=== PATIENT | female | born 1985 | race African-American/Black ===

== ENCOUNTER 2019-03-24 18:39 | Inpatient (IN) | payer MEDICAID ==
[~2019-03-24] VITALS: Ht 167.6 cm; Wt 90.7 kg
[2019-03-24] MEDS ORDERED: DEXT 5%/LACTATED RINGERS 1,000 ML IV SCH (18:58)
[2019-03-24] MEDS ORDERED: LACTATED RINGERS 1,000 ML IV SCH (18:58)
[2019-03-24] MEDS ORDERED: PENICILLIN G POTASSIUM 5 MMU in DEXT 5% WATER 100 ML IV SCH (19:00)
[2019-03-24] MEDS ORDERED: RHO(D) IMMUNE GLOBULIN 300 MCG/SYR IM NR (19:00)
[2019-03-24] MEDS ORDERED: CARBOPROST TROMETHAMINE 250 MCG/ML AMPUL IM PRN (19:00)
[2019-03-24] MEDS ORDERED: METHYLERGONOVINE MALEATE 0.2 MG/ML IM PRN (19:00)
[2019-03-24] MEDS ORDERED: NALOXONE HCL 0.4 MG/ML 1ML VIAL IM PRN (19:00)
[2019-03-24] MEDS ORDERED: PENICILLIN G POTASSIUM 2.5 MMU in DEXTROSE 5% WATER 50 ML IV SCH (19:15)
[2019-03-24] MEDS: BUTORPHANOL TARTRATE 2 MG/ML VIAL IV PRN ×3 (19:25→23:53)
[2019-03-24 19:47] LABS: BASOPHILS % 0.6 % (0.0-2.0); EOSINOPHILS % 0.5 % (0.0-5.0); HEMATOCRIT. 24.7 % (36.0-48.0); HEMOGLOBIN. 7.1 g/dL (12.0-16.0); MEAN CORPUSCULAR HEMOGLOBIN 15.1 pg (28.0-32.0); MEAN CORPUSCULAR VOLUME 52.4 fL (81.0-99.0); MEAN PLATELET VOLUME 8.7 fl (7.4-10.4); MONOCYTES % 4.5 % (2.0-8.0); NEUTROPHILS % 76.4 % (40.0-76.0); PLATELET 184 x1000/uL (130-400); RED CELL DISTRIBUTION WIDTH 23.2 % (11.6-14.6)
[2019-03-24 19:52] LABS: CHLORIDE 109 mEq/L (98-107)
[2019-03-24 19:57] LABS: CLARITY URINE CLOUDY (CLEAR); COLOR URINE ORANGE (YELLOW); KETONES URINE TRACE (NEGATIVE); LEUKOCYTE ESTERASE URINE 1+ (NEGATIVE); NITRITE URINE POSITIVE (NEGATIVE); OCCULT BLOOD URINE 3+ (NEGATIVE); PROTEIN URINE 4+ (NEGATIVE); SPECIFIC GRAVITY URINE 1.037 (1.005-1.030)
[2019-03-24 20:04] LABS: D-DIMER 16.17 mg/L FEU (<0.50); PROTHROMBIN TIME 10.3 sec (9.6-11.0)
[2019-03-24 20:10] LABS: *BARBITURATES SCREEN URINE NEGATIVE (NEGATIVE)
[2019-03-24 20:11] LABS: *BENZODIAZEPINES SCREEN URINE NEGATIVE (NEGATIVE); *COCAINE SCREEN URINE NEGATIVE (NEGATIVE); METHADONE URINE SCREEN NEGATIVE (NEGATIVE); OPIATES URINE SCREEN NEGATIVE (NEGATIVE); PHENCYCLIDINE URINE SCREEN NEGATIVE (NEGATIVE)
[2019-03-24 20:16] LABS: CANNABINOID URINE SCREEN PRESUMTIVE POSITIVE (NEGATIVE)
[2019-03-24 20:17] LABS: *AMPHETAMINES SCREEN URINE PRESUMTIVE POSITIVE (NEGATIVE)
[2019-03-24] MEDS: DEXT 5%/LR + PITOCIN 20UNITS/L 1,000 ML IV SCH ×2 (20:23→22:24)
[2019-03-24] MEDS: CLINDAMYCIN 900 MG in DEXTROSE 5% WATER 50 ML IV SCH (20:38)
[2019-03-24] MEDS: MAGNESIUM 20 G PREMIX (L & D) 500 ML IV SCH (20:42)
[2019-03-24] MEDS ORDERED: DEXT 5%/LR + PITOCIN 20UNITS/L 1,000 ML IV SCH (21:11)
[2019-03-24] MEDS ORDERED: DIPHENHYDRAMINE 25MG CAPSULE PO PRN (21:15)
[2019-03-24] MEDS ORDERED: IBUPROFEN 400MG TABLET PO PRN (21:15)
[2019-03-24] MEDS ORDERED: MAGNESIUM 4 G PREMIX 100 ML IV ONE (21:15)
[2019-03-24] MEDS ORDERED: INFLUENZA VIRUS VACCINE(AFLURIA) 0.5ML SYR IM ONE (21:15)
[2019-03-24] MEDS ORDERED: TETANUS, DIPHTHERIA, PERTUSSIS VAC/PF 0.5ML (>7YR OLD) IM ONE (21:15)
[2019-03-24] MEDS ORDERED: LANOLIN OINT 0.25 GM TUBE TOP PRN (21:15)
[2019-03-24] MEDS ORDERED: MAGNESIUM 2 G PREMIX 50 ML IV NR (21:33)
[2019-03-24] MEDS ORDERED: HEMORRHOIDAL SUPP PR PRN (21:33)
[2019-03-24] MEDS ORDERED: GLYCERIN/WITCH HAZEL LEAF MEDICATED PAD TOP PRN (21:33)
[2019-03-24 22:04] LABS: PLATELET ESTIMATE NORMAL
[2019-03-24] MEDS: GENTAMICIN 100MG PREMIX 50 ML IV SCH (22:25)
[2019-03-24] MEDS: HYDRALAZINE 20MG/ML VIAL IV NR ×2 (23:16→23:55)
[2019-03-25] VITALS (9 sets, daily range): BP systolic 115–174; BP diastolic 76–119
[2019-03-25 03:37] LABS: BASOPHILS % 0.8 % (0.0-2.0); EOSINOPHILS % 0.2 % (0.0-5.0); HEMATOCRIT. 21.7 % (36.0-48.0); LYMPHOCYTES % 15.7 % (20.0-50.0); MEAN CORPUSCULAR HEMOGLOBIN 15.1 pg (28.0-32.0); MEAN CORPUSCULAR VOLUME 52.3 fL (81.0-99.0); MEAN PLATELET VOLUME 9.3 fl (7.4-10.4); MONOCYTES % 2.8 % (2.0-8.0); NEUTROPHILS % 80.5 % (40.0-76.0); PLATELET 153 x1000/uL (130-400); RED BLOOD CELL COUNT 4.16 mill/uL (4.2-5.4); RED CELL DISTRIBUTION WIDTH 22.7 % (11.6-14.6)
[2019-03-25 03:47] LABS: HEMOGLOBIN. 6.3 g/dL (12.0-16.0)
[2019-03-25] MEDS: CLINDAMYCIN 900 MG in DEXTROSE 5% WATER 50 ML IV SCH ×3 (04:39→22:16)
[2019-03-25 04:44] LABS: HEPATITIS B SURFACE ANTIGEN NEGATIVE
[2019-03-25] MEDS: BUTORPHANOL TARTRATE 2 MG/ML VIAL IV PRN (05:08)
[2019-03-25] MEDS: GENTAMICIN 100MG PREMIX 50 ML IV SCH ×3 (06:35→22:16)
[2019-03-25] MEDS: LABETALOL HCL 100MG TABLET PO SCH ×3 (06:40→22:19)
[2019-03-25] MEDS: MAGNESIUM 20 G PREMIX (L & D) 500 ML IV SCH (06:53)
[2019-03-25] MEDS ORDERED: LIDOCAINE HCL/PF 1% 10 MG/ML 5ML VIAL ONE (07:01)
[2019-03-25] MEDS: ACETAMINOPHEN WITH CODEINE 300/30MG TABLET PO PRN ×4 (08:45→22:33)
[2019-03-25] MEDS: PRENATAL VIT/FE FUMARATE/FA TABLET PO SCH (13:44)
[2019-03-25] MEDS: FERROUS SULFATE 325MG TABLET PO SCH ×2 (13:44→18:31)
[2019-03-25] MEDS: DOCUSATE SODIUM 100MG CAPSULE PO SCH (22:16)
[2019-03-26] VITALS (11 sets, daily range): BP systolic 109–140; BP diastolic 69–95
[2019-03-26 05:50] LABS: BASOPHILS % 0.7 % (0.0-2.0); EOSINOPHILS % 1.9 % (0.0-5.0); LYMPHOCYTES % 24.4 % (20.0-50.0); MEAN CORPUSCULAR HEMOGLOBIN 16.4 pg (28.0-32.0); MEAN CORPUSCULAR VOLUME 54.7 fL (81.0-99.0); MONOCYTES % 3.5 % (2.0-8.0); NEUTROPHILS % 69.5 % (40.0-76.0); RED BLOOD CELL COUNT 3.82 mill/uL (4.2-5.4); RED CELL DISTRIBUTION WIDTH 25.9 % (11.6-14.6)
[2019-03-26] MEDS: GENTAMICIN 100MG PREMIX 50 ML IV SCH (06:35)
[2019-03-26] MEDS: LABETALOL HCL 100MG TABLET PO SCH ×2 (06:36→21:58)
[2019-03-26] MEDS: FERROUS SULFATE 325MG TABLET PO SCH ×2 (06:36→16:12)
[2019-03-26] MEDS: ACETAMINOPHEN WITH CODEINE 300/30MG TABLET PO PRN ×4 (06:36→21:45)
[2019-03-26 06:51] LABS: HEMATOCRIT. 20.9 % (36.0-48.0); HEMOGLOBIN. 6.3 g/dL (12.0-16.0)
[2019-03-26 07:49] LABS: CHLORIDE 107 mEq/L (98-107)
[2019-03-26 07:59] LABS: GENTAMICIN RANDOM 1.7 ug/mL
[2019-03-26] MEDS: PRENATAL VIT/FE FUMARATE/FA TABLET PO SCH ×2 (09:58→16:12)
[2019-03-26 10:18] LABS: MEAN PLATELET VOLUME 9.3 fl (7.4-10.4); PLATELET 143 x1000/uL (130-400)
[2019-03-26] MEDS: IBUPROFEN 800MG TABLET PO PRN (16:11)
[2019-03-26] MEDS: DOCUSATE SODIUM 100MG CAPSULE PO SCH (21:02)
[2019-03-26] MEDS ORDERED: ACETAMINOPHEN WITH CODEINE 300/30MG TABLET PO SCH (21:30)
[2019-03-27 05:45] VITALS: BP 137/77
[2019-03-27] MEDS: LABETALOL HCL 100MG TABLET PO SCH (05:51)
[2019-03-27 07:42] VITALS: BP 130/78
[2019-03-27] MEDS: PRENATAL VIT/FE FUMARATE/FA TABLET PO SCH (08:06)
[2019-03-27] MEDS: FERROUS SULFATE 325MG TABLET PO SCH (08:06)
[2019-03-27] MEDS: IBUPROFEN 800MG TABLET PO PRN (08:06)
[2019-03-27] MEDS: ACETAMINOPHEN WITH CODEINE 300/30MG TABLET PO PRN (10:11)
[2019-03-27 12:00] VITALS: BP 129/78
[2019-03-29 14:11] LABS: AMPHETAMINE CONF URINE Positive (.); CANNABINOID CONFIRMATION URINE Positive (.)
== END 2019-03-27 13:00 | disposition home or self-care (01) | DRG 560 ==
LOC: OBSVTOIN 18:39 → 8 EST LDRP 18:39 → 5EST 03-25 13:31 → 8EST 03-26 12:01
PROVIDERS: ADMIT Obstetrics & Gynecology; ATTEND Specialist
PROC: 10E0XZZ Delivery of Products of Conception, External Approach (ICD-10-PCS; principal; 2019-03-24)
PROC: 30233N1 Transfusion of Nonautologous Red Blood Cells into Peripheral Vein, Percutaneous Approach (ICD-10-PCS; 2019-03-25)
DX: O13.4 Gestational [pregnancy-induced] hypertension without significant proteinuria, complicating childbirth (principal); D62 Acute posthemorrhagic anemia; O77.0 Labor and delivery complicated by meconium in amniotic fluid; O23.43 Unspecified infection of urinary tract in pregnancy, third trimester; Z37.0 Single live birth; O90.81 Anemia of the puerperium; F12.10 Cannabis abuse, uncomplicated; F15.10 Other stimulant abuse, uncomplicated; O76 Abnormality in fetal heart rate and rhythm complicating labor and delivery; O99.324 Drug use complicating childbirth; Z3A.36 36 weeks gestation of pregnancy; O09.513 Supervision of elderly primigravida, third trimester; Z88.0 Allergy status to penicillin
CPT/HCPCS: 36415; 76815; 80048; 80170; 80305; 80307; 80349; 80359; 83735; 84550; 85379; 85384; 86592; 86703; 86762; 86850; 86900; 86920; 87340; 88307; 99281; G0378; J0360; J0595; J1580; J2590; J3475; J3490; J7050; J7060; P9021; A4315